=== PATIENT | male | born 1955 | race Caucasian/White ===

== ENCOUNTER 2025-02-21 07:30 | Outpatient (OUT) | payer OTHER, SELFPAY ==
--- OUTSIDE RECORDS SUMMARY | 2015-07-02 14:00 | XMS_ITS | Encounter Summary ---
Author Organization [facility] [employer] [facility] Address [address] [place] [address] Care Team Providers Care Dental Coordinator Name Role Phone Manish Caro MD Primary Care Provider [phone] Encounter Details Date Type Department Care Team (Late st Contact Info) Description 07/02/2015 2:00 PM EDT Hospital Encounter [facility] Diabetic Education [address] [place] [address] Manish Caro MD [address] [place] [address] Social History Tobacco Use Types Packs/Day Years Used Date Smoking Tobacco: Some Days Cigarettes 1 40 Started: 01/09/1972; Last attempted to quit: 01/09/2012 Cigars Smokeless Tobacco: Never Comments:Pt smokes cigars on occasion. Alcohol Use Standard Drinks/Week Comments Yes 0 (1 standard drink = 0.6 oz pur e alcohol) rare Sex and Gender Information Value Date Recorded Sex Assigned at Not on file Legal Sex Male 11:47 AM EST Gender Identity Not on file Sexual Orientation Not on file documented as of this encounter Plan of Treatment Not on file documented as of this encounter Visit Diagnoses Not on filedocumented in this encounter Care Teams Dental Coordinator Relationship Specialty Start Date End Date Manish Caro MD [address] [place] [address] PCP - General Internal Medicine 02/08/12 12/04/16 documented as of this encounter
--- OUTSIDE RECORDS SUMMARY | 2025-02-21 07:36 | XMS_ITS | Clinical Summary ---
Author Organization [facility] Address [address] [place] [address] Care Team Providers Care Mechanical Engineering Teacher Name Role Phone Alejandro Chase Primary Care Provider Jewel e Allergies Active Allergy Reactions Criticality Noted Date Comments Gabapentin 11/17/2020 Makes pt feel out of it and can't wake up Medications glucose blood test strips (GLUCOMETER ELITE TEST STRIPS) stripIndications: Type II or unspecified type diabetes mellitus without mention of complication, not stated as uncontrolled Please dispense a new glucometer. Check blood sugar every morning. 100 strip 12 2 Active aspirin 325 MG tablet Take 325 mg by mouth daily. Active levothyroxine (SYNTHROID) 150 MCG tablet Take 175 mcg by mouth Daily Active traMADol (ULTRAM) 50 MG tablet Take 50 mg by mouth every 6 hours as needed for Pain Active nortriptyline (PAMELOR) 25 MG capsule Take 100 mg by mouth nightly Active [place]-3 Fatty Acids (FISH OIL) 1000 MG CAPS Take 1,000 mg by mouth 2 times daily Active metFORMIN (GLUCOPHAGE) 500 MG tablet Take 500 mg by mouth 2 times daily (with meals) Active metoprolol tartrate (LOPRESSOR) 25 MG tablet Take 25 mg by mouth 2 times daily Active Ascorbic Acid (VITAMIN C) 250 MG tablet Take 250 mg by mouth daily Active Active Problems Problem Noted Date Diagnosed Date Bronchial asthma 03/05/2013 Obesity 03/05/2013 Small airways disease 02/15/2013 Restrictive lung disease 02/15/2013 Depression with anxiety 06/01/2012 DOLORES on CPAP 05/15/2012 Hypothyroidism 02/11/2012 Benign essential HTN 02/11/2012 Resolved Problems Problem Noted Date Diagnosed Date Resolved Date Type II or unspecified type diabetes mellitus without mention of complication, not stated as uncontrolled 02/11/2012 08/14/2015 Immunizations Immunization Administration Dates Next Due Influenza 08/21/2012 Influenza Virus Vaccine 06/19/2015 Pneumococcal, PPSV23, PNEUMO VAX 23, (age 2y+), SC/IM, 0.5mL 06/19/2015 Family History Relation Name Status Comments Father Alive Mother Alive Social History Tobacco Use Types Packs/Day Years [...] on file Sexual Orientation Not on file Last Filed Vital Signs Vital Sign Reading Time Taken Comments Blood Pressure 118/81 12/06/2016 2:30 AM EST Pulse 104 12/06/2016 2:30 AM EST Temperature 36.7 C (98.1 F) 12/05/2016 10:39 PM EST Respiratory Rate 20 12/06/2016 2:30 AM EST Oxygen Saturation 96% 12/06/2016 2:30 AM EST Inhaled Oxygen Concentration - - Weight 114.3 kg (252 lb) 09/29/2015 11:01 AM EST Height 190.5 cm (6' 3 ) 11/17/2020 8:32 AM EST Body Mass Index 30.67 09/29/2015 11:01 AM EST Plan of Treatment Not on file Insurance [employer] Care Teams Mechanical Engineering Teacher Relationship Specialty Start Date End Date Alejandro Chase PCP - General 12/05/16
--- OUTSIDE RECORDS SUMMARY | 2025-02-21 07:36 | XMS_ITS | Clinical Summary ---
Author Organization [facility] Address [address] [place] [address] Phone Care Team Providers Care Sizing End Bander Name Role Phone Unavailable Primary Care Provider Unavailabl e Social History Tobacco Use Types Packs/Day Years Used Date Smoking Tobacco: Never Assessed Sex and Gender Information Value Date Recorded Sex Assigned at Not on file Legal Sex Male 10:14 AM EST Gender Identity Not on file Sexual Orientation Not on file Plan of Treatment Not on file
--- OUTSIDE RECORDS SUMMARY | 2025-02-21 07:36 | XMS_ITS | Encounter Summary ---
Author Organization [facility] Address [address] [place] [address] Care Team Providers Care Operations Liaison Name Role Phone Alejandro Chase Primary Care Provider Unavailbharat e Reason for Visit * Reason Onset Date Comments Medication Refill 02/03/2015 Encounter Details Date Type Department Care Team (Late st Contact Info) Description 02/03/2015 Refill [facility] Primary Care [facility] [address] [place] [address] Manish Caro MD [address] [place] [address] Medication Refill Social History Tobacco Use Types Packs/Day Years Used Date Smoking Tobacco: Light Smoker Cigarettes 2 40 Started: 89; Last attempted to quit: 01/09/2012 Smokeless Tobacco: Never Comments:Pt smokes cigars on occasion. Alcohol Use Standard Drinks/Week Comments Yes 0 (1 standard drink = 0.6 oz pur e alcohol) Socially Sex and Gender Information Value Date Recorded Sex Assigned at Not on file Legal Sex Male 11:47 AM EST Gender Identity Not on file Sexual Orientation Not on file documented as of this encounter Plan of Treatment Not on file documented as of this encounter Visit Diagnoses Not on filedocumented in this encounter Care Teams Operations Liaison Relationship Specialty Start Date End Date Alejandro Chase PCP - General 12/05/16 documented as of this encounter
--- OUTSIDE RECORDS SUMMARY | 2025-02-21 07:36 | XMS_ITS | Clinical Summary ---
Author Organization [facility] Address [facility] [place] [address] Care Team Providers Care Liquor Merchant Name Role Phone Gypsy Perez CNP Primary Care Provider [phone] Allergies No known active allergies Medications traMADoL (ULTRAM) 50 mg tablet Take 1 (one) tablet (50 mg total) by mouth every 6 (six) hours as needed . Active levothyroxine (SYNTHROID, LEVOTHROID) 150 MCG tablet Take 175 mcg by mouth daily . Active metFORMIN (GLUCOPHAGE) 500 MG tablet Take 1 (one) tablet (500 mg total) by mouth 2 (two) times a day with meals . Active metoprolol tartrate (LOPRESSOR) 25 MG tablet Take 2 (two) tablets (50 mg total) by mouth 2 (two) times a day . Active amLODIPine (NORVASC) 10 MG tablet Take 1 (one) tablet (10 mg total) by mouth daily . Active losartan (COZAAR) 25 MG tablet Take 1 (one) tablet (25 mg total) by mouth 2 (two) times a day . Active apremilast 30 mg Tab Take 1 (one) tablet (30 mg total) by mouth 2 (two) times a day . Active nortriptyline (PAMELOR) 50 MG capsule Take 1 (one) capsule (50 mg total) by mouth 2 (two) times a day . Active atorvastatin (LIPITOR) 20 MG tablet Take 1 (one) tablet (20 mg total) by mouth daily . Active aspirin 81 MG EC tablet Take 1 (one) tablet (81 mg total) by mouth daily . Active ondansetron (ZOFRAN-ODT) 4 MG disintegrating tablet Dissolve 1 (one) tablet (4 mg total) on top of tongue every 6 (six) hours as needed for nausea . 12 tablet 02/16/20 23 Active HYDROcodone-acetam inophen (NORCO) 5-325 mg per tabletIndications: Kidney stone on left side Take 1 (one) tablet by mouth every 6 (six) hours as needed for pain Can cause sedation, constipation, and potentially addiction. . 8 tablet 02/16/20 23 Active Social History Tobacco Use Types Packs/Day Years Used Date Smoking Tobacco: Every Day Cigars Smokeless Tobacco: Never Tobacco Cessation:Ready to Q uit: Not Asked; Counseling Given: Not Answered Alcohol Use Standard Drinks/Week Comments Yes 0 (1 standard drink = 0.6 oz pur e alcohol) Social Sex and Gender Information Value Date Recorded Sex Assigned at Not on file Legal Sex Male 7:39 AM EDT Gender Identity Male 02/15/2023 1:30 AM EDT Sexual Orientation Straight 02/15/2023 1: 30 AM EDT Last Filed Vital Signs Vital Sign Reading Time Taken Comments Blood Pressure 134/84 02/15/2023 1:51 AM EDT Pulse 71 02/15/2023 1:51 AM EDT Temperature 36.4 C (97.6 F) 02/15/2023 12:04 AM EDT Respiratory Rate 16 02/15/2023 1:57 AM EDT Oxygen Saturation 93% 02/15/2023 1:51 AM EDT Inhaled Oxygen Concentration - - Weight 95.3 kg (210 lb) 02/15/2023 12:04 AM EDT Height 190.5 cm (6' 3 ) 02/15/2023 12:04 AM EDT Body Mass Index 26.25 02/15/2023 12:04 AM EDT Plan of Treatment Health Maintenance Due Date Last Done Comments Abdominal Aortic Ultrasound 1956 CT Colonography 1956 Colonoscopy 1956 Colorectal Cancer Screening/Monitoring 1956 Fecal DNA 1956 Fecal occult blood test (FOBT,FIT) 1956 PSA Level 1956 Tetanus: Every 10yrs 1956 Medicare Wellness Visit 12/16/1959 Depression Screening/Follow-Up (PHQ-2/9) 1968 Hepatitis C Screening 1974 Flexible sigmoidoscopy 2006 Zoster Vaccines (1 of 2) 2006 Pneumococcal Vaccine: Age 50+ (2 of 2 - PCV) 6 06/19/2015 Respiratory Syncytial Virus Immunization: Risk, 60-74 Risk, or 75+ (1 - Risk 60-74 years 1-dose series) 2016 Falls Risk Assessment 2021 COVID-19 Vaccine ( season) 2024 Influenza Vaccine (Season Ended) 2025 06/19/20 Insurance [facility] MEDIC[facility] PART A & B Member Subscriber Plan / Payer (Ef fective 2021-Present) Name:Giovanny White Member ID:[id number] Relation to Subscriber:Self Name:Giovanny White Subscriber ID:[id number] Payer ID:Not on file Group ID:Not on file Type:Not on file Address: [facility] [id number] [place] [address] [place] [address] [facility] Care Teams Liquor Merchant Relationship Specialty Start Date End Date Gypsy Perez CNP [id number] [id number] PCP - General Nurse Practitioner 02/15/23
[2025-02-21 07:52] LABS: Bilirubin Urine NEGATIVE (NEGATIVE); Blood Urine NEGATIVE (NEGATIVE); Clarity Urine CLEAR (CLEAR); Color Urine YELLOW (YELLOW); Glucose Urine UA >=1000 mg/dL (NEGATIVE); Ketones Urine TRACE mg/dL (NEGATIVE); Leukocyte Esterase Urine NEGATIVE (NEGATIVE); Nitrite Urine NEGATIVE (NEGATIVE); Protein Urine 30 mg/dL (NEG/TRACE)
[2025-02-21 08:26] LABS: Alanine Aminotransferase 28 U/L (16-63); Albumin Globulin Ratio 1.1; Albumin Level 4.2 g/dL (3.4-5.0); Alkaline Phosphatase 91 U/L (46-116); Anion Gap 11.2; Aspartate Amino Transferase 13 U/L (15-37); Bilirubin Total 1.1 mg/dL (0.2-1.0); Calcium 9.3 mg/dL (8.5-10.1); Carbon Dioxide 31.3 mmol/L (21.0-32.0); Chloride 99 mmol/L (98-107); Estimated GFR (African America >60 (>=60 mL/min/1.73m^2); Estimated GFR (Non-African Ame 50 (>=60 mL/min/1.73m^2); Globulin 3.9 g/dL; Glucose 378 mg/dL (74-106); Potassium 4.5 mmol/L (3.5-5.1); Sodium 137 mmol/L (136-145); Total Protein 8.1 g/dL (6.4-8.2)
== END 2025-02-21 07:31 | disposition home or self-care (01) ==
LOC: LAB 07:35
PROVIDERS: Visit Provider Chiropractor
DX: E11.9 Type 2 diabetes mellitus without complications (principal)
CPT/HCPCS: 36415; 80053; 81003